=== PATIENT | male | born 1990 | race Caucasian/White ===

== ENCOUNTER 2018-05-03 13:26 | Emergency (ER) | payer MEDICAID, SELFPAY ==
[2018-05-03] VITALS (7 sets, daily range): BP systolic 136–175; BP diastolic 73–99; PULSE 83–95; RESP 14–15; TEMP 37.3; O2SAT 96–99; BMI 30.7
--- NOTE | 2018-05-03 13:38 | ED.RN ---
GIRLFRIEND ARRIVED AND IS NOW AT BEDSIDE.
--- NOTE | 2018-05-03 13:39 | ED.RN ---
CAMO BOOTS, LIGHT BROWN CARHART TYPE COAT, JEANS, SHIRT, UNDERWEAR.
--- NOTE | 2018-05-03 13:43 | ED.RN ---
PT STATES THAT HE HAS BEEN OUT OF HIS ZYPREXA FOR SEVERAL DAYS AND THINKS THAT IS WHAT IS WRONG AND JUST NEEDS THE ZYPREXA REFILLED.
[2018-05-03 14:12] LABS: Absolute Lymphocyte Count 1.51 X10^3/ul (0.83-4.51); Absolute Neutrophil Count 8.3 X10^3/uL (2.0-7.7); Basophil# 0.01 X10^3/uL; Basophil% 0.1 % (0-1); Eosinophil# 0.01 X10^3/uL; Eosinophils% 0.1 % (0-5); Hematocrit 50.3 % (40-54); Hemoglobin 17.2 g/dl (13.0-16.5); Lymphocyte # 1.51 X10^3/ul (4.0); Lymphocyte % 14.3 % (19-41); Mean Corp Hgb Conc 34.2 g/gl (32-36); Mean Corpuscular Hgb 28.9 pg (27.0-32.0); Mean Corpuscular Volume 84.5 fL (80-94); Mean Platelet Vol. 10.1 fl (6.2-12.0); Monocyte# 0.72 X10^3/uL; Monocyte% 6.8 % (0-10); Neutrophil # 8.31 X10^3/uL (2.7-7.7); Neutrophil % 78.4 % (47-70); Platelet Count 281 K/mm3 (150-450); RBC Distribution Width CV 14.2 % (11.6-14.6); RBC Distribution Width SD 43.1 fl (35.1-43.9); Red Blood Count 5.95 M/mm3 (4.6-6.2); White Blood Count 10.6 K/mm3 (4.4-11.0)
[2018-05-03 14:16] LABS: POSITIVE COUNT NO; POSITIVE DIFFERENTIAL NO; POSITIVE MORPHOLOGY NO
[2018-05-03 14:28] LABS: AST(SGOT) 15 U/L (15-37); Alanine Aminotransfer ALT/SGPT 29 U/L (16-61); Albumin, Serum 4.2 g/dL (3.2-5.0); Alkaline Phosphatase 63 U/L (45-117); Anion Gap 11 (5-15); BUN 10 mg/dL (7-18); BUN/Creat Ratio 12.1 RATIO (10-20); Calcium,Total 9.2 mg/dL (8.5-10.1); Chloride 103 mmol/L (98-107); Creatinine, Serum 0.83 mg/dL (0.70-1.30); EST Glomerular Filtration Rate 118 mL/min (>60); Est Glom Filt Rate - Afr Amer 143 mL/min (>60); Estimated Creatinine Clearance 142.38 ml/min; Glucose 110 mg/dL (74-106); Potassium 3.6 mmol/L (3.5-5.1); Protein, Total 8.2 g/dL (6.4-8.2); Sodium Level 141 mmol/L (136-145)
[2018-05-03 14:46] LABS: Valproic Acid (Depakene) Level 92 ug/mL (50-100)
--- NOTE | 2018-05-03 15:03 | ED.VISSUMM ---
- ER Visit Summary Date of Service: 05/03/18 Chief Complaint: Schizophrenia History of Present Illness: The patient is a 27 M is a history of schizophrenia. Over the past couple days significant other has stated that she has not felt very safe at home. He is starting to have hallucinations. He states he is in a world war. He had an appointment today with his psychiatrist to receive his monthly injection and was stating that that is a lethal injection. He came to the emergency department with police under a pink slip by the psychiatrist. He lives with his significant other and has 2 daughters both at the age of 1. He denies any suicidal ideation. He does note thoughts of harming people if needed to. Physical Examination: Afebrile vital signs are stable Patient has pressured speech and appears internally stimulated. He does have hallucinations/delusions. He has paranoid ideation. He is cooperative with staff. Test Results: Basic labs were negative. Emergency Department Course and Treatment: Patient was medically cleared for crisis evaluation. I believe the patient needs to be admitted and stabilized to psychiatric facility. Impression: 1. Acute decompensated schizophrenia This note was generated with DataStax dictation software. It may contain incorrect words, spelling, and punctuation that were not noted in review of the chart prior to signing ED Disposition - Plan for ED Patient: Chief Complaint: Depression Referrals: Care Physician,No Primary [Primary Care Provider] -
[2018-05-03 15:09] LABS: Amphetamine Urine VISTA NEGATIVE (<1000 ng/mL); Barbiturate Urine VISTA NEGATIVE (< 200 ng/mL); Benzodiazepine Urine VISTA NEGATIVE (< 200 ng/mL); Cocaine Urine VISTA NEGATIVE (< 300 ng/mL); Ecstacy Urine VISTA NEGATIVE (< 500 ng/mL); Methadone Urine VISTA NEGATIVE (< 300 ng/mL); PCP Urine VISTA NEGATIVE (< 25 ng/mL); THC Urine VISTA POSITIVE (< 50 ng/mL); Vista UDS pH Range 7
--- NOTE | 2018-05-03 15:10 | ED.DCSUM_ITS ---
- ER Visit Summary Date of Service: 05/03/18 Chief Complaint: Schizophrenia History of Present Illness: The patient is a 27 M is a history of schizophrenia. Over the past couple days significant other has stated that she has not felt very safe at home. He is starting to have hallucinations. He states he is in a world war. He had an appointment today with his psychiatrist to receive his monthly injection and was stating that that is a lethal injection. He came to the emergency department with police under a pink slip by the psychiatrist. He lives with his significant other and has 2 daughters both at the age of 1. He denies any suicidal ideation. He does note thoughts of harming people if ne eded to. Physical Examination: Afebrile vital signs are stable Patient has pressured speech and appears internally stimulated. He does have hallucinations/delusions. He has paranoid ideation. He is cooperative with staff. Test Results: Basic labs were negative. Emergency Department Course and Treatment: Patient was medically cleared for crisis evaluation. I believe the patient needs to be admitted and stabilized to psychiatric facility. Impression: 1. Acute decompensated schizophrenia This note was generated with App[employer] dictation software. It may contain incorrect words, spelling, and punctuation that were not noted in review of the chart prior to signing ED Disposition - Plan for ED Patient: Chief Complaint: Depression Referrals: Care Physician,No Primary [Primary Care Provider] -
[2018-05-03] MEDS: LORazepam 1 MG Tablet PO (16:25)
[2018-05-03] MEDS: LORazepam 1 MG Tablet 2 MG PO (17:21)
[2018-05-03] MEDS: Ziprasidone IM 20 MG/ML VIAL IM (17:51)
--- NOTE | 2018-05-03 18:01 | ED.RN ---
PER YNES WITH CRISIS; PT HAS BEEN REFEREED TO [facility] FOR [facility]ACEMENT
--- NOTE | 2018-05-03 19:06 | ED.RN ---
CALL WHEN WE KNOW WHERE AND WHEN HE IS BEING TRANSFERRED. IVÁN LEVY, - [phone]
--- NOTE | 2018-05-03 20:20 | ED.RN ---
CALLED AND UPDATED AT THIS TIME
--- NOTE | 2018-05-03 20:23 | ED.RN ---
CALLED REPORT CALLED TO [facility], REPORT GIVEN TO URIEL.
--- NOTE | 2018-05-03 20:50 | ED.RN ---
REPORT GIVEN TO [facility], PT STATUS UNCHANGED. BELONGINGS GIVEN TO [facility] STAFF.
== END 2018-05-03 20:45 ==
PROVIDERS: Emergency Provider Emergency Medicine
DX: F23 Brief psychotic disorder (principal); Z72.0 Tobacco use; Z79.899 Other long term (current) drug therapy
CPT/HCPCS: 36415; 80053; 80164; 80307; 80320; 85025; 96372; 99285; G0480; J3486

== ENCOUNTER → 2019-12-30 11:46 | Outpatient (CLI) | payer MEDICARE, MEDICAID, SELFPAY ==
[2018-05-03 13:27] VITALS: BMI 30.7
[2019-12-30 12:38] LABS: Platelet Count 321 K/mm3 (150-450)
[2019-12-30 13:01] LABS: AST(SGOT) 16 U/L (15-37); Alanine Aminotransfer ALT/SGPT 26 U/L (16-61)
[2019-12-30 13:03] LABS: Valproic Acid (Depakene) Level 148 ug/mL (50-100)
== END ==
PROVIDERS: Referring Provider Psychiatry & Neurology Psychiatry; Visit Provider Psychiatry & Neurology Psychiatry
DX: Z79.899 Other long term (current) drug therapy (principal)
CPT/HCPCS: 36415; 80164; 82140; 84450; 84460; 85049

== ENCOUNTER → 2020-01-27 07:50 | Outpatient (CLI) | payer MEDICARE, MEDICAID, SELFPAY ==
[2018-05-03 13:27] VITALS: BMI 30.7
[2020-01-27 09:46] LABS: Valproic Acid (Depakene) Level < 3 ug/mL (50-100)
== END ==
PROVIDERS: Referring Provider Psychiatry & Neurology Psychiatry; Visit Provider Psychiatry & Neurology Psychiatry
DX: Z79.899 Other long term (current) drug therapy (principal)
CPT/HCPCS: 36415; 80164

== ENCOUNTER 2020-04-08 18:22 | Emergency (ER) | payer MEDICARE, MEDICAID, SELFPAY ==
[2018-05-03 13:27] VITALS: BMI 30.7
[2020-04-08 18:25] VITALS: BP 156/86; PULSE 74; RESP 16; TEMP 35.8; O2SAT 97; BMI 31.4
[2020-04-08 18:28] VITALS: BP 156/86; PULSE 72; RESP 16; TEMP 35.8; O2SAT 97
[2020-04-08 18:51] LABS: Absolute Lymphocyte Count 3.44 X10^3/uL (0.83-4.51); Absolute Neutrophil Count 5.6 X10^3/uL (2.0-7.7); Basophil# 0.04 X10^3/uL; Basophil% 0.4 % (0-1); Eosinophil# 0.11 X10^3/uL; Eosinophils% 1.1 % (0-5); Hematocrit 52.6 % (40-54); Hemoglobin 17.4 g/dL (13.0-16.5); Lymphocyte # 3.44 X10^3/ul (4.0); Mean Corp Hgb Conc 33.1 g/dL (32-36); Mean Corpuscular Hgb 28.3 pg (27.0-32.0); Mean Corpuscular Volume 85.7 fL (80-94); Mean Platelet Vol. 9.3 fl (6.2-12.0); Monocyte# 0.65 X10^3/uL; Monocyte% 6.6 % (0-10); NRBC Flagged by Analyzer 0 % (0-5); Neutrophil # 5.57 X10^3/uL (2.7-7.7); Neutrophil % 56.7 % (47-70); Platelet Count 321 K/mm3 (150-450); RBC Distribution Width CV 13.2 % (11.6-14.6); RBC Distribution Width SD 41.1 fl (35.1-43.9); Red Blood Count 6.14 M/mm3 (4.6-6.2); White Blood Count 9.8 K/mm3 (4.4-11.0)
--- NOTE | 2020-04-08 19:01 | ED.VISSUMM ---
- ER Visit Summary Date of Service: 04/08/20 Chief Complaint: Homicidal ideation History of Present Illness: The patient is a 29 M presenting with homicidal ideation. Patient states that he is having abnormal thoughts and paranoia. He is having homicidal thoughts towards Shivam Kulkarni. He is concerned that Cayla will take everyone's guns away. He is concerned this may cause a bloody war in [place]. He is concerned about the violence. He denies suicidal ideation or homicidal ideation towards anyone other than Shivam Kulkarni. He has a history of schizophrenia and follows with the counseling center. He admits to marijuana use, denies other drug use. Physical Examination: Vitals are stable. Patient is afebrile. Alert no acute distress. HEENT exam is unremarkable. Neck is supple. Lungs are clear and equal bilaterally. Heart is regular rate and rhythm. Abdomen is soft nontender nondistended. Extremities are unremarkable. Skin is warm and dry. No focal neurologic deficit. Cooperative, denies suicidal ideation, homicidal ideation toward Cayla Remainder of exam is unremarkable. Emergency Department Course and Treatment: CBC, chemistries unremarkable. Alcohol negative. Tox positive for THC. Awaiting counseling center evaluation, patient became upset about not being able to call his , he became aggressive and eloped from the emergency department. Police were called and are attempting to locate him. Disposition: Elopement Impression: Homicidal thoughts, history of schizophrenia This note was generated with Wellpepper dictation software. It may contain incorrect words, spelling, and punctuation that were not noted in review of the chart prior to signing ED Disposition - Plan for ED Patient: Disposition: Against Medical Advice Referrals: Care Physician,No Primary [Primary Care Provider] -
[2020-04-08 19:04] LABS: Anion Gap 5 (5-15); BUN 7 mg/dL (7-18); BUN/Creat Ratio 7.9 RATIO (10-20); Chloride 109 mmol/L (98-107); Creatinine, Serum 0.88 mg/dL (0.70-1.30); EST Glomerular Filtration Rate 108 mL/min (>60); Est Glom Filt Rate - Afr Amer 131 mL/min (>60); Estimated Creatinine Clearance 131.92 ml/min; Glucose 92 mg/dL (74-106); Potassium 3.7 mmol/L (3.5-5.1); Sodium Level 139 mmol/L (136-145)
[2020-04-08 19:47] LABS: Amphetamine Urine VISTA NEGATIVE (<1000 ng/mL); Barbiturate Urine VISTA NEGATIVE (< 200 ng/mL); Benzodiazepine Urine VISTA NEGATIVE (< 200 ng/mL); Cocaine Urine VISTA NEGATIVE (< 300 ng/mL); Ecstacy Urine VISTA NEGATIVE (< 500 ng/mL); Methadone Urine VISTA NEGATIVE (< 300 ng/mL); PCP Urine VISTA NEGATIVE (< 25 ng/mL); THC Urine VISTA POSITIVE (< 50 ng/mL); Vista UDS pH Range 5
[2020-04-08 19:53] VITALS: RESP 16
--- NOTE | 2020-04-08 20:04 | ED.RN ---
PT CAME RUSHING OUT OF ROOM. THE PHONE DOESN'T WORK, I'M OUT OF HERE. GIVE ME MY FUCKING CLOTHES. PT RUSHED AT THIS NURSE I WAS TRYING TO DEFUSE THE SITUATION. PT REPEATEDLY ASKED FOR HIS CLOTHES AND RUSHED AT THIS NURSE IN A THREATENING MANOR. PT LEFT THE ER IN GOWNS AND HOSPITAL SOCKS. WIRELESS COMMUNICATIONS ENGINEER WAS INSTRUCTED TO CALL POLICE. DR. QUEEN AWARE OF SITUATION.
--- NOTE | 2020-04-08 20:06 | ED.RN ---
PT WAS GIVEN A PHONE BY THE MANAGER LINUX AND TO CALL HIS ,PT DIALED HIS .NEXT SECOND PT CAME OUT CURSING AND SAYING,FUCK YOU,I'M OUT OF HERE SINCE I CAN'T CALL MY . FOLLOWED PT OUT AND HE TURNED TO THE R SIDE.PT GAVE THIS NURSE THE MIDDLE FINGER AND LEFT.POLICE CALLED.
--- NOTE | 2020-04-08 20:39 | ED.RN ---
2006 pt was not pink slipped.
--- NOTE | 2020-04-08 20:39 | ED.RN ---
pt's called and stated that the pt had called her and wanted to be picked up and then hung up prior to her responding.pt's asked where to pick him up at,she was confused.updated as able, asked to be called when he comes back.
--- NOTE | 2020-04-08 21:42 | ED.RN ---
THIS RN SPOKE WITH [place] IN SECURITY TO SEE IF HE HEARD ANY UPDATES FROM THE POLICE SCANNER. HE STATES HE HEARD ON THE SCANNER IT'S CLOSED. PRIMARY NURSE NOTIFIED
== END 2020-04-08 22:00 | disposition left against medical advice (07) ==
PROVIDERS: Emergency Provider Emergency Medicine
DX: F20.9 Schizophrenia, unspecified (principal); R45.850 Homicidal ideations; Z72.0 Tobacco use; Z79.899 Other long term (current) drug therapy
CPT/HCPCS: 36415; 80048; 80307; 80320; 85025; 99282; G0480

== ENCOUNTER 2020-08-16 02:04 | Emergency (ER) | payer MEDICARE, MEDICAID, SELFPAY ==
[2020-08-16] VITALS (15 sets, daily range): BP systolic 107–192; BP diastolic 60–100; PULSE 62–108; RESP 14–20; TEMP 36.6; O2SAT 93–99; BMI 28.7
--- NOTE | 2020-08-16 02:15 | ED.VIS.GEN ---
History of Present Illness Chief Complaint: Mental Health Informant: Patient Narrative: 30 year-old male with past medical history of bipolar disorder and schizophrenia presents with concern for melchor. Patient's called police whenever he called her in a manic state. When police approached him at home he ran out on his roof and was very paranoid stating that no one is real. Patient states he has been taking his medication. He denies any suicidal or homicidal ideation at this time. Per on the phone he takes Depakote, Zyprexa, and a monthly Abilify shot. Patient did receive his Abilify on 07/23/2020. Past Medical History - Allergies and Home Meds Allergies/Adverse Reactions: Allergies haloperidol [From Haldol] Allergy (Verified 08/16/20 02:10) Other jaw clenching risperidone Allergy (Verified 08/16/20 02:10) Other jaw clenching Primary Care Physician: Care Physician,No Primary [Primary Care Provider] - Prior records reviewed: Yes Past Medical History: - - Bipolar and Schizophrenia Lives: Spouse/ Significant Other Smoking Status: Current every day smoker Alcohol: None Drugs: None Review of Systems General: Denies: Chills, Fever, Sweats Eyes: Denies: Visual changes - bilaterally, Diplopia ENT: Denies: Rhinorrhea, Sore throat Cardiovascular: Denies: Chest pain, Palpitations Respiratory: Denies: Dyspnea, Cough, Dyspnea on exertion Gastrointestinal: Denies: Abdominal pain, Nausea, Vomiting, Diarrhea, Melena, Hematochezia Genitourinary: Denies: Dysuria, Hematuria, Frequency Musculoskeletal: Denies: Back pain, Extremity Pain Skin: Denies: Rash, Wounds Neurological: Denies: Headache, Weakness, Numbness Psych: Reports: - - melchor Physical Exam Vital Signs/Narrative: Vital Signs Temp Pulse Resp BP Pulse Ox 08/16/20 02:08 97.8 F 88 16 192/100 H 93 General: Well nourished, Well developed, No Acute Distress Head: Normocephalic, Atraumatic Eyes: Perrl, EOMI ENT: Moist mucous membranes, No rhinorrhea Neck: Supple, Nontender Cardiovascular: Regular rate, Regular rhythm, No murmurs Respiratory: No distress, CTA bilaterally, Chest nontender Abdomen: Soft, Nontender, Nondistended, Normal bowel sounds Back: Nontender, Normal Inspection Extremities: Nontender, No edema Skin: Normal color, No rash Neurological: Alert, Oriented x3, Cranial nerves II-XII grossly intact, Normal Strength, Normal Sensation Psychological: Normal affect, - - Internally stimulated Diagnostic/Tx/Re-eval Laboratory Data 08/16/20 08/16/20 08/16/20 02:20 02:20 02:20 WBC 9.8 RBC 5.60 Hgb 15.9 Hct 47.4 MCV 84.6 MCH 28.4 MCHC 33.5 RDW Std Deviation 41.2 RDW Coeff of Elli 13.3 Plt Count 345 MPV 9.2 Immature Gran % (Auto) 0.300 Neut % (Auto) 67.0 Lymph % (Auto) 24.9 Hood % (Auto) 6.8 Eos % (Auto) 0.6 Baso % (Auto) 0.4 Absolute Neuts (auto) 6.6 Absolute Lymphs (auto) 2.44 Nucleated RBC % 0 Sodium 137 Potassium 3.5 Chloride 102 Carbon Dioxide 25.0 Anion Gap 10 BUN 15 Creatinine 1.05 Estim Creat Clear Calc 109.56 Est GFR (MDRD) Af Amer 107 Est GFR (MDRD) Non-Af 88 BUN/Creatinine Ratio 14.3 Glucose 123 H Calcium 9.6 Urine Color Urine Clarity Urine pH Ur Specific [place] Urine Protein Urine Glucose (UA) Urine Ketones Urine Occult Blood Urine Nitrite Urine Bilirubin Urine Urobilinogen Ur Leukocyte Esterase Urine RBC Urine WBC Ur Squamous Epith Cells Urine Bacteria Urine Mucus Urine Opiates Screen Urine Methadone Screen Ur Barbiturates Screen Ur Phencyclidine Scrn Ur Amphetamines Screen U Methamphetamin-MDMA U Benzodiazepines Scrn Urine Cocaine Screen U Cannabinoids Screen Ur Drug Screen Comment Ethyl Alcohol < 3.0 08/16/20 08/16/20 02:45 02:45 WBC RBC Hgb Hct MCV MCH MCHC RDW Std Deviation RDW Coeff of Elli Plt Count MPV Immature Gran % (Auto) Neut % (Auto) Lymph % (Auto) Hood % (Auto) Eos % (Auto) Baso % (Auto) Absolute Neuts (auto) Absolute Lymphs (auto) Nucleated RBC % Sodium Potassium Chloride Carbon Dioxide Anion Gap BUN Creatinine Estim Creat Clear Calc Est GFR (MDRD) Af Amer Est GFR (MDRD) Non-Af BUN/Creatinine Ratio Glucose Calcium Urine Color Yellow Urine Clarity Clear Urine pH 7.0 Ur Specific [place] 1.005 Urine Protein Negative Urine Glucose (UA) Normal Urine Ketones 5 H Urine Occult Blood Negative Urine Nitrite Negative Urine Bilirubin Negative Urine Urobilinogen Normal Ur Leukocyte Esterase Negative Urine RBC 0 SEEN Urine WBC 0 SEEN Ur Squamous Epith Cells 0 SEEN Urine Bacteria 0 SEEN Urine Mucus 0 SEEN Urine Opiates Screen NEGATIVE Urine Methadone Screen NEGATIVE Ur Barbiturates Screen NEGATIVE Ur Phencyclidine Scrn NEGATIVE Ur Amphetamines Screen POSITIVE H U Methamphetamin-MDMA NEGATIVE U Benzodiazepines Scrn NEGATIVE Urine Cocaine Screen NEGATIVE U Cannabinoids Screen POSITIVE H Ur Drug Screen Comment Ethyl Alcohol - Rhythm Strip Rhythm Strip: Sinus Rhythm Rate: 70 Ectopy: None - EKG Initial EKG Interpretation: Sinus Rhythm - NSR 70 bpm. SD interval of 150 ms. QTC of 442 ms. No evidence of ST elevation or depression at this time. - Medical Decision Making Patient manic upon arrival. Patient was given Zyprexa and Versed. Medically cleared. Patient became agitated and was given more Versed. Spoke with crisis and patient is will need to be admitted. Patient then eloped from the department. Police were called. Upon return patient will be restrained and await placement. Impression: 1. Acute psychosis 2. Schizophrenia 3. Bipolar disorder 4. Agitation - Critical Care Time Critical care time (excluding procedures): 30-74 minutes, Discussing w/Patient &/or Family/Screw Machine Operator, Discussing w/Consultants, Performing Direct Patient Care at Bedside ED Disposition - Plan for ED Patient: Disposition: Psychiatric Hospital or Unit Referrals: Care Physician,No Primary [Primary Care Provider] -
[2020-08-16] MEDS: Midazolam 2 MG/2 ML Syringe 5 MG IM (02:20)
[2020-08-16 02:25] LABS: Absolute Lymphocyte Count 2.44 X10^3/uL (0.83-4.51); Absolute Neutrophil Count 6.6 X10^3/uL (2.0-7.7); Basophil# 0.04 X10^3/uL; Basophil% 0.4 % (0-1); Eosinophil# 0.06 X10^3/uL; Eosinophils% 0.6 % (0-5); Hematocrit 47.4 % (40-54); Hemoglobin 15.9 g/dL (13.0-16.5); Lymphocyte # 2.44 X10^3/ul (4.0); Lymphocyte % 24.9 % (19-41); Mean Corp Hgb Conc 33.5 g/dL (32-36); Mean Corpuscular Hgb 28.4 pg (27.0-32.0); Mean Corpuscular Volume 84.6 fL (80-94); Mean Platelet Vol. 9.2 fl (6.2-12.0); Monocyte# 0.67 X10^3/uL; Monocyte% 6.8 % (0-10); NRBC Flagged by Analyzer 0 % (0-5); Neutrophil # 6.55 X10^3/uL (2.7-7.7); Platelet Count 345 K/mm3 (150-450); RBC Distribution Width CV 13.3 % (11.6-14.6); RBC Distribution Width SD 41.2 fl (35.1-43.9); White Blood Count 9.8 K/mm3 (4.4-11.0)
[2020-08-16] MEDS: OLANZapine 5 MG/TAB TAB.RAPDIS 10 MG PO (02:32)
[2020-08-16 02:37] LABS: Alcohol, Blood (Medical)-Serum < 3.0 mg/dL
[2020-08-16 02:39] LABS: Anion Gap 10 (5-15); BUN 15 mg/dL (7-18); BUN/Creat Ratio 14.3 RATIO (10-20); Calcium,Total 9.6 mg/dL (8.5-10.1); Chloride 102 mmol/L (98-107); Creatinine, Serum 1.05 mg/dL (0.70-1.30); EST Glomerular Filtration Rate 88 mL/min (>60); Est Glom Filt Rate - Afr Amer 107 mL/min (>60); Estimated Creatinine Clearance 109.56 ml/min; Glucose 123 mg/dL (74-106); Potassium 3.5 mmol/L (3.5-5.1); Sodium Level 137 mmol/L (136-145)
[2020-08-16 02:51] LABS: Bacteria 0 SEEN /hpf (None Seen); Color, Urine Yellow (Yellow); Glucose, Dipstick Normal (Normal); Ketone-Dipstick 5 mg/dl (Negative); Leukocyte Esterase-Dipstick Negative /ul (Negative); Mucous, Urine 0 SEEN /hpf (<or=2+); Nitrite-Dipstick Negative (Negative); Occult Blood-Urine Negative /ul (Negative); Protein-Dipstick Negative (Negative); Red Blood Cells-Urine 0 SEEN /hpf (0-5); Specific Gravity, Urine 1.005 (1.002-1.030); Squamous Epithelial Cells - UA 0 SEEN /hpf (0-5); Urine Bilirubin Dipstick Negative (Negative); Urine Clarity Clear (Clear); Urine Urobilinogen Normal (Normal); White Blood Cells 0 SEEN /hpf (0-5)
[2020-08-16 03:10] LABS: Amphetamine Urine VISTA POSITIVE (<1000 ng/mL); Barbiturate Urine VISTA NEGATIVE (< 200 ng/mL); Benzodiazepine Urine VISTA NEGATIVE (< 200 ng/mL); Cocaine Urine VISTA NEGATIVE (< 300 ng/mL); Ecstacy Urine VISTA NEGATIVE (< 500 ng/mL); Methadone Urine VISTA NEGATIVE (< 300 ng/mL); PCP Urine VISTA NEGATIVE (< 25 ng/mL); THC Urine VISTA POSITIVE (< 50 ng/mL); Vista UDS pH Range 7
--- NOTE | 2020-08-16 03:15 | ED.RN ---
PAGED CRISIS AND FAXED THE REPORT
--- NOTE | 2020-08-16 04:50 | EKG12_ITS ---
Test Reason : MHC Blood Pressure : / mmHG Vent. Rate : 070 BPM Atrial Rate : 070 BPM P-R Int : 150 ms QRS Dur : 092 ms QT Int : 410 ms P-R-T Axes : 036 066 038 degrees QTc Int : 442 ms Normal sinus rhythm Normal ECG Confirmed by CHICO FORREST, MANI ([id number]), news assignment editor GAUDENCIO CRUM ([id number]) on 08/20/2020 1:23:24 PM Referred By: CL Confirmed By:CHINO GOLDEN MD
--- NOTE | 2020-08-16 05:44 | ED.RN ---
0520 REPAGED CRISIS TO TALK TO THIS PT, 05Bhargav, SILVINO ON THE PHONE WITH THIS PT
--- NOTE | 2020-08-16 05:50 | ED.RN ---
0530 CALLED POLICE DUE TO THIS PT WALKING OUT OF THE HOSPITAL, PT RETURNED VIA [facility]A FEW MINUTES LATER
--- NOTE | 2020-08-16 06:44 | ED.RN ---
PT STATED HE WOULD BE GOING HOME. PT TOLD BY RN THAT HE WOULD MOST LIKELY BE GETTING PLACED SOMEWHERE BASED ON THE ER DOC ASSMNT. PT STATES HE IS GETTING OUTTA HERE AND I CAN DO THIS ALL DAY REFERRING TO RUNNING OUT OF THE DEPARTMENT. PT RAN AROUND THE BACK OF THE DEPARTMENT. ELI DURAN WAS CALLED. PT ENDED UP CIRCLING BACK TO THE FRONT AND WAS MET BY SECURITY AND A NURSE. PT SHOVED THE FOUNTAIN VENDING MECHANIC STATING WHAT THE FUCK ARE YOU GONNA DO. PT SHOVED THROUGH THE ER DOORS, KNOCKING THEM OFF THE TRACK. SQL PROGRAMMER HAD CONTACTED [facility] AT THIS POINT TO GET OFFICERS DISPATCHED. PT RAN FROM FACILITY WITH [id number] ER PHONE IN HAND FROM TALKING TO CRISIS AND HIS . PT RAN ACROSS THE STREET AND LEFT PROPERTY WITH THE PHONE IN HAND. SECURITY FOLLOWED PT TO END OF HOSPITAL PROPERTY. NOTIFIED. MEDICATION AND LOCKED RESTRAINTS ORDERED FOR PTS RETURN TO ER. QUANTROS FILLED OUT FOR EVENT
--- NOTE | 2020-08-16 06:56 | NURSING ---
UMER DUBOIS WITH CRISIS; PT IS PENDING WITH [facility].
--- NOTE | 2020-08-16 07:01 | ED.RN ---
patient brought back in to ED handcuffed with 5 [employer] officers. Pt yelling screaming and threatening PD and staff. Pt assisted into ED bed by PD and placed in 4 point locked restraints. Pt yelling, kicking and threatening staff still. Patient medicated per JUL. See restraint documentation. Patient and staff safety maintained. Will continue to closely monitor patient.
[2020-08-16] MEDS: Ziprasidone IM 20 MG/ML VIAL IM ×2 (07:05→13:33)
[2020-08-16] MEDS: LORazepam 2 MG/ML Syringe IM (07:05)
[2020-08-16] MEDS: DiphenhydrAMINE 50 MG/ML Syringe 25 MG IM (07:05)
--- NOTE | 2020-08-16 07:53 | ED.RN ---
patient continues to scream in his room let me talk to my . Pt asked repeatedly to stop screaming. pt told if he stops screaming and cooperates he could talk to his . Patient did. called and placed on speaker phone in room with patient. Pt remains in restraints, will continue to monitor for removal.
--- NOTE | 2020-08-16 09:50 | NURSING ---
patient continuing to scream and try to rock the bed. still in restraints. Dr Hyman notified and new medication ordered. pt safety maintained.
[2020-08-16] MEDS: ChlorproMAZINE 50 MG/2 ML Ampul IM (09:56)
--- NOTE | 2020-08-16 16:31 | ED.RN ---
PT CONTINUES TO ROCK THE BED AND SCREAM. PT STILL IN 4 POINT RESTRAINTS. SAFETY MAINTAINED.
--- NOTE | 2020-08-16 17:36 | ED.RN ---
UPDATED NURSE GROVER FROM [facility]. UNABLE TO GET PT OUT OF RESTRAINTS AT THIS TIME, SO THEY CANNOT EXCEPT PT. WILL UPDATE [facility] NURSE ONCE WE CAN GET PT OUT OF RESTRAINTS.
--- NOTE | 2020-08-16 17:45 | ED.RN ---
PT CURRENTLY BEING COOPERATIVE AT THIS TIME. RIGHT WRIST AND LEFT ANKLE RESTRAINT REMOVED AT THIS TIME. PT EXPLAINED THAT HE MUST BE COOPERATIVE IN ORDER TO GET OUT OF RESTRAINTS. WILL CONTINUE TO MONITOR.
--- NOTE | 2020-08-16 18:10 | ED.RN ---
PT BEING COOPERATIVE AT THIS TIME. ALL RESTRAINS ARE OFF AT THIS TIME.
== END 2020-08-17 00:37 ==
PROVIDERS: Emergency Provider Emergency Medicine
DX: F20.9 Schizophrenia, unspecified (principal); F31.9 Bipolar disorder, unspecified; F17.200 Nicotine dependence, unspecified, uncomplicated; Z79.899 Other long term (current) drug therapy
CPT/HCPCS: 80048; 80307; 81001; 82077; 85025; 87426; 93005; 96372; 99285; J3486

== ENCOUNTER → 2021-04-08 11:17 | Outpatient (CLI) | payer MEDICARE, MEDICAID, SELFPAY ==
[2021-04-08 12:35] LABS: Platelet Count 261 K/mm3 (150-450)
[2021-04-08 13:13] LABS: AST(SGOT) 17 U/L (15-37); Alanine Aminotransfer ALT/SGPT 21 U/L (16-61); Prolactin 5.3 ng/mL; Valproic Acid (Depakene) Level 72 ug/mL (50-100)
[2021-04-08 13:24] LABS: Hemoglobin A1c 5.2 % (3.8-5.6)
== END ==
PROVIDERS: Referring Provider Psychiatry & Neurology Psychiatry; Visit Provider Psychiatry & Neurology Psychiatry
DX: Z79.899 Other long term (current) drug therapy (principal)
CPT/HCPCS: 36415; 80164; 83036; 84146; 84450; 84460; 85049

== ENCOUNTER 2021-06-28 06:43 | Emergency (ER) | payer MEDICARE, MEDICAID, SELFPAY ==
[2021-06-28 06:46] VITALS: BP 145/81; PULSE 70; RESP 16; TEMP 36.4; O2SAT 97; BMI 30.2
--- NOTE | 2021-06-28 07:10 | CT_ITS ---
STUDY: CT ABDOMEN AND PELVIS WITH CONTRAST REASON FOR EXAM: Male, 30 years old. Perineal abscess, ro fistula RADIATION DOSAGE (If Supplied By Facility): CTDIvol = ( 16.12 ) mGy, DLP = ( 1189.29 ) mGycm TECHNIQUE: Transaxial images were obtained from the dome of the diaphragm to the symphysis pubis without oral contrast. IV 100mL Isovue-370 was administered. Sagittal and coronal images were reconstructed. Individualized dose optimization techniques were used for this CT. COMPARISON: None. FINDINGS: The visualized lung bases are unremarkable. The visualized portions of the heart are within normal limits. Normal liver. The gallbladder is contracted. Normal spleen. Normal pancreas. Normal bilateral adrenal glands. Normal right kidney. Normal left kidney. Normal visualized stomach. Normal small intestine. Normal colon. The patient is status post appendectomy. Normal abdominal aorta. Normal inferior vena cava. There is borderline retroperitoneal lymphadenopathy with enlarged nodes no greater than 10mm in the short axis diameter. Normal urinary bladder. There are increased markings in the subcutaneous tissues in the region of the perineum and medial aspects of both gluteal regions. There is evidence of a 3.3 cm x 1.6 cm soft tissue density in the posterior midline of the perineum. A tiny air bubble is seen within it. This may represent either gas-forming bacterial infection versus communication with the overlying skin. Note definite abscess is seen at this time. Normal abdominal wall. Normal osseous structures. CT/Abdomen/Pelvis W IV Cont ONLY IMPRESSION: 3.3 cm x 1.6 cm soft tissue density in the posterior midline of the perineum with a tiny air bubble within. This may represent either gas-forming bacterial infection versus clinical indication with the overlying skin. Increased markings in the surrounding subcutaneous fat suggestive of possible cellulitis. Electronically Signed: Jose Armando Shirley MD at 7:51 EST ,
--- NOTE | 2021-06-28 07:11 | EX.ED.DYSGE1 ---
HPI History of Present Illness Chief Complaint: Abscess Detail of Chief Complaint: Concern for abscess to the perineum Informant: patient Narrative Narrative: Patient presents to the emergency department complaint of a soft tissue swelling and abscess to the perineum that has been dealing with off and on for about a year. Patient states that it it drains every month or two. Patient complains of pain to the area. He was not sure what to do and did not know if he needed to have antibiotics. Patient has history of schizophrenia. He presented this morning via EMS. He denies abdominal pain. He denies fever, chills, sweats. Prior similar symptoms: Yes PFSH PFS Medical History (Updated 06/28/21 @ 08:[address] Carlos Benson, DO) Bipolar disorder Schizophrenia Home Medications divalproex 500 mg PO DAILY 05/03/18 [History Last Taken Unknown] olanzapine 30 mg PO QHS 05/03/18 [History Last Taken Unknown] aripiprazole 500 mg IM QMONTH 04/08/20 [History Last Taken Unknown] sulfamethoxazole-trimethoprim 1 tab PO BID #20 tablet 06/28/21 [Rx Last Taken Unknown] Allergy/AdvReac Type Severity Reaction Status Date / Time haloperidol [From Haldol] Allergy Other Verified 06/28/21 06:44 risperidone Allergy Other Verified 06/28/21 06:44 Surgical History (Updated 06/28/21 @ 06:45 by Bib Caro) Hx of appendectomy Social History Smoking Status: Current every day smoker tobacco type: cigarettes ROS ROS ED Constitutional Constitutional ED: Reports systems reviewed and no addt'l complaints, except as documented; Denies body ache(s), change in weight or chills Eyes Eyes: Denies acute decrease in peripheral vision, change in vision, double vision or loss of vision ENT ENT ED: Reports none; Denies ear pain, lip swelling, loss taste/smell, neck pain, otalgia or sore throat Cardiovascular Cardiovascular: Reports none; Denies abdominal pain, chest pain with activity, leg edema, lightheadedness, palpitations, rapid heart rate or syncope Respiratory/Chest Respiratory/Chest: Reports none; Denies change in mental status, dry cough, dyspnea, hemoptysis, shortness of breath at rest or shortness of breath with exertion Gastrointestinal Gastrointestinal: Reports none; Denies abdominal pain, change in stool character, diarrhea, hematemesis, hematochezia, melena, rectal bleeding or vomiting Genitourinary Genitourinary ED: Reports none and other Details: Pain to the perineum with swelling and drainage ; Denies abdominal discomfort, anuria, dysuria, genital pain or polyuria Musculoskeletal Musculoskeletal: Reports none; Denies arthralgias, back pain, difficulty walking, extremity pain, muscle weakness or myalgias Integumentary Reports none; Denies abscess or rash Neurologic Neurologic: Reports none; Denies abnormal gait, confusion, focal weakness, frequent falls, headache(s), loss of vision, numbness, paresthesias, radicular pain, vertigo or weakness Psychiatric Psychiatric: Reports systems reviewed and no addt'l complaints, except as documented and none; Denies behavioral changes, confusion, difficulty concentrating, hallucinations, suicidal ideation, tactile hallucinations or visual hallucinations Endocrine Endocrinology: Denies none, cold intolerance, excessive sweating, fatigue or heat intolerance Hematologic/Lymphatic Hematologic/Lymphatic: Reports none; Denies anemia, easy bleeding or easy bruising Allergic/Immunologic Allergic/Immunologic ED: Denies as per HPI, none, lip swelling, mouth swelling, throat swelling, tongue swelling or hives EXAM Physical Exam Const Vital Signs: 06/28/21 06:46 06/28/21 07:38 Temperature 97.6 F L 98.7 F Temperature Source Temporal Temporal Pulse Rate 70 74 Respiratory Rate 16 18 Blood Pressure 145/81 H 140/79 H Blood Pressure Mean 102 99 Pulse Ox 97 99 Oxygen Delivery Method Room Air Room Air Positive well nourished and well developed General Appearance ED: well developed and NAD HEENT Reports TM's clear and moist mucous membranes normocephalic and atraumatic; Negative for trauma or tenderness Tympanic Membrane ED: Yes TM's clear Eyes PERRL and EOMs intact bilaterally General Eye ED: Negative for pale conjunctiva or scleral icterus Neck no lymphadenopathy, supple and no JVD General: Negative for tenderness Chest Wall inspection of chest normal and palpation of chest normal Chest: Negative for tenderness Resp normal respiratory effort and clear to auscultation bilaterally Effort and Inspection: Negative for respiratory distress or pain with movement Auscultation: Negative for rhonchi, wheezes or diminished lung sounds Cardio regular rate, regular rhythm, S1 normal heart sound, S2 normal heart sound and no murmurs Peripheral Pulses: pulses 2+ throughout GI normal to inspection, nondistended, normoactive bowel sounds, soft to palpation, non-tender, non-distended and no masses Narrative: Evaluation of the perineum reveals a small opening measuring about 5 mm in diameter draining some serous the brownish debris. Mild tenderness on exam. Back/Spine no CVA tenderness and no thoracic nor lumbar tenderness Extremity normal to inspection General Extremety ED: Negative for edema General Extremity: Negative for edema Neuro oriented x3, CN's II-XII intact bilaterally, no sensory deficits noted and gait normal Sensorium / Orientation: awake, alert, oriented to person, oriented to place and oriented to time Motor Exam: strength 5/5 throughout and strength abnormal Psych mental status grossly normal Skin no rashes or lesions noted and no wounds MDM MDM MDM Narrative Medical decision making narrative: IV line established on arrival. Lab work ordered. CT scan of the abdomen pelvis with IV contrast ordered to rule out abscess versus fistula. Lab work was normal. CT scan showed a 3 cm x 1.6 cm soft tissue density in the posterior midline of the perineum. I discussed results with general surgeon on-call Dr. Sunny Dawkins who recommended Epson salt baths and antibiotic Bactrim and he will see patient in the office for follow-up. Patient advised return if fever, chills, sweats, or condition should worsen anyway. Patient discharged home stable condition Lab Data Attestation: I reviewed the patient's lab results. Labs: Laboratory Results - last 24 hr 06/28/21 06/28/21 07:20 07:20 WBC 8.4 RBC 5.28 Hgb 15.9 Hct 46.7 MCV 88.4 MCH 30.1 MCHC 34.0 RDW Std Deviation 44.1 H RDW Coeff of Elli 13.4 Plt Count 233 MPV 9.4 Immature Gran % (Auto) 0.400 Neut % (Auto) 63.6 Lymph % (Auto) 26.8 [place] % (Auto) 7.8 Eos % (Auto) 0.8 Baso % (Auto) 0.6 Absolute Neuts (auto) 5.4 Absolute Lymphs (auto) 2.26 Nucleated RBC % 0 Sodium 139 Potassium 3.8 Chloride 107 Carbon Dioxide 28.0 Anion Gap 4 L BUN 6 L Creatinine 0.75 Estim Creat Clear Calc 153.39 Est GFR (MDRD) Af Amer 157 Est GFR (MDRD) Non-Af 130 BUN/Creatinine Ratio 8.0 L Glucose 115 H Calcium 8.8 Radiography Diagnostic Testing: Clinical Impression(s) from Imaging Studies Abdomen/Pelvis CT 06/28/21 07:10 IMPRESSION: 3.3 cm x 1.6 cm soft tissue density in the posterior midline of the perineum with a tiny air bubble within. This may represent either gas-forming bacterial infection versus clinical indication with the overlying skin. Increased markings in the surrounding subcutaneous fat suggestive of possible cellulitis. Electronically Signed: Jose Armando Shirley MD at 7:51 EST , Discharge Plan Triage Chief Complaint: Abscess ED Provider: Carlos Benson Dx/Rx/DC Orders Clinical Impression: Abscess of perineum Instructions: ED Abscess Antibiotic Treatment Only Prescriptions: New sulfamethoxazole-trimethoprim [sulfamethoxazole-trimethoprim] 1 TABLET tablet 1 tab PO BID Qty: 20 RF: 0 No Action olanzapine 10 MG tablet 30 mg PO QHS RF: 0 divalproex 250 MG tablet 500 mg PO DAILY RF: 0 aripiprazole 400 MG suspension,extended rel recon 500 mg IM QMONTH RF: 0 Primary Care Provider: Care Physician,No Primary Referrals: Sunny Dawkins MD [STAFF PHYSICIAN] - 3-5 Days Care Physician,No Primary [Primary Care Provider] - Activity Restrictions/Additional Instructions: Use Epson salt baths several times a day and follow-up with surgeon in the office. Disposition Disposition: Home, Self Care
[2021-06-28 07:25] LABS: Absolute Lymphocyte Count 2.26 X10^3/uL (0.83-4.51); Absolute Neutrophil Count 5.4 X10^3/uL (2.0-7.7); Basophil# 0.05 X10^3/uL; Basophil% 0.6 % (0-1); Eosinophil# 0.07 X10^3/uL; Eosinophils% 0.8 % (0-5); Hematocrit 46.7 % (40-54); Hemoglobin 15.9 g/dL (13.0-16.5); Lymphocyte # 2.26 X10^3/ul (0.83-4.51); Lymphocyte % 26.8 % (19-41); Mean Corpuscular Hgb 30.1 pg (27.0-32.0); Mean Corpuscular Volume 88.4 fL (80-94); Mean Platelet Vol. 9.4 fl (6.2-12.0); Monocyte# 0.66 X10^3/uL; Monocyte% 7.8 % (0-10); NRBC Flagged by Analyzer 0 % (0-5); Neutrophil # 5.36 X10^3/uL (2.7-7.7); Neutrophil % 63.6 % (47-70); Platelet Count 233 K/mm3 (150-450); RBC Distribution Width CV 13.4 % (11.6-14.6); RBC Distribution Width SD 44.1 fl (35.1-43.9); Red Blood Count 5.28 M/mm3 (4.6-6.2); White Blood Count 8.4 K/mm3 (4.4-11.0)
[2021-06-28 07:38] VITALS: BP 140/79; PULSE 74; RESP 18; TEMP 37.1; O2SAT 99
[2021-06-28 07:38] LABS: Anion Gap 4 (5-15); BUN 6 mg/dL (7-18); Calcium,Total 8.8 mg/dL (8.5-10.1); Chloride 107 mmol/L (98-107); Creatinine, Serum 0.75 mg/dL (0.70-1.30); EST Glomerular Filtration Rate 130 mL/min (>60); Est Glom Filt Rate - Afr Amer 157 mL/min (>60); Estimated Creatinine Clearance 153.39 ml/min; Glucose 115 mg/dL (74-106); Potassium 3.8 mmol/L (3.5-5.1); Sodium Level 139 mmol/L (136-145)
[2021-06-28 08:32] VITALS: PULSE 80; RESP 16; O2SAT 97
== END 2021-06-28 08:33 | disposition home or self-care (01) ==
PROVIDERS: Emergency Provider Emergency Medicine; Visit Provider Emergency Medicine
DX: L02.215 Cutaneous abscess of perineum (principal); F20.9 Schizophrenia, unspecified; F31.9 Bipolar disorder, unspecified; F17.210 Nicotine dependence, cigarettes, uncomplicated; Z79.899 Other long term (current) drug therapy
CPT/HCPCS: 74177; 80048; 85025; 99285; Q9967; A4216

== ENCOUNTER → 2021-12-09 | Outpatient (CLI) | payer MEDICARE, MEDICAID, SELFPAY ==
[2021-12-09 15:06] LABS: Platelet Count 309 K/mm3 (150-450)
[2021-12-09 15:32] LABS: Hemoglobin A1c 5.4 % (3.8-5.6)
[2021-12-09 15:48] LABS: Valproic Acid (Depakene) Level 58 ug/mL (50-100)
[2021-12-09 15:52] LABS: AST(SGOT) 18 U/L (15-37); Alanine Aminotransfer ALT/SGPT 32 U/L (16-61)
== END | disposition home or self-care (01) ==
LOC: LAB 12:07
PROVIDERS: Visit Provider Psychiatry & Neurology Psychiatry
DX: Z79.899 Other long term (current) drug therapy (principal)
CPT/HCPCS: 36415; 80164; 82140; 83036; 84450; 84460; 85049

== ENCOUNTER → 2022-01-07 | Outpatient (CLI) | payer MEDICARE, MEDICAID, SELFPAY | END | disposition home or self-care (01) | PROVIDERS: Referring Provider Psychiatry & Neurology Psychiatry; Visit Provider Psychiatry & Neurology Psychiatry | DX: Z79.899 Other long term (current) drug therapy (principal) | CPT/HCPCS: 36415; 82140 ==

== ENCOUNTER 2022-03-05 13:12 | Emergency (ER) | payer MEDICARE, MEDICAID, SELFPAY ==
[2022-03-05 13:13] VITALS: BP 128/85; PULSE 90; RESP 16; TEMP 37.1; O2SAT 98; BMI 30.3
== END 2022-03-05 14:30 | disposition left against medical advice (07) ==
LOC: ED 14:41
DX: L03.90 Cellulitis, unspecified (principal); Z53.21 Procedure and treatment not carried out due to patient leaving prior to being seen by health care provider

== ENCOUNTER 2022-03-30 01:46 | Emergency (ER) | payer MEDICARE, MEDICAID, SELFPAY ==
[2022-03-30 01:46] VITALS: BP 138/76; PULSE 76; RESP 18; TEMP 36.4; O2SAT 95; BMI 33.2
--- NOTE | 2022-03-30 02:01 | EX.ED.DYSGE1 ---
HPI History of Present Illness Chief Complaint: Abscess Informant: patient Onset/Context/Timing Onset: Days (4 days) Context: Gradual Onset Current Severity: Mild Maximum Severity: Moderate Narrative Narrative: Patient presents with concern for perineal abscess. He reports painful swollen area to the perineum. Has been using sitz baths and using antibiotic ointment. Tonight when he was using the restroom he noted a lot of blood and drainage. He has had no fever or chills. PFSH PFS Medical History Bipolar disorder Schizophrenia Home Medications divalproex 250 mg tablet,extended release 24 hr 500 mg PO DAILY 05/03/18 [History Last Taken Unknown] olanzapine 10 mg tablet 30 mg PO QHS 05/03/18 [History Last Taken Unknown] aripiprazole 400 mg intramuscular suspension,extended release 500 mg IM QMONTH 04/08/20 [History Last Taken Unknown] cephalexin 500 mg capsule 500 mg PO Q6 #40 caps 03/30/22 [Rx Last Taken Unknown] sulfamethoxazole 800 mg-trimethoprim 160 mg tablet (Bactrim DS) 1 tab PO BID #20 tabs 03/30/22 [Rx Last Taken Unknown] Allergy/AdvReac Type Severity Reaction Status Date / Time haloperidol [From Haldol] Allergy Other Verified 03/30/22 01:48 EST risperidone Allergy Other Verified 03/30/22 01:48 EST Surgical History Hx of appendectomy Social History Smoking Status: Current every day smoker tobacco type: cigarettes and smokeless tobacco ROS ROS ED Constitutional Constitutional ED: Denies chills or fever(s) Eyes Eyes: Denies change in vision or discharge from eye(s) ENT ENT ED: Denies discharge from eye(s), rhinorrhea or sore throat Cardiovascular Cardiovascular: Denies chest pain or palpitations Respiratory/Chest Respiratory/Chest: Denies cough or dyspnea Gastrointestinal Gastrointestinal: Denies abdominal pain, diarrhea, nausea or vomiting Genitourinary Genitourinary ED: Denies difficulty urinating or dysuria Musculoskeletal Musculoskeletal: Denies back pain or extremity pain Integumentary Reports abscess; Denies Abrasions or rash Neurologic Neurologic: Denies headache(s) or weakness Allergic/Immunologic Allergic/Immunologic ED: Denies lip swelling or urticaria EXAM Physical Exam Const Vital Signs: 03/30/22 01:46 EST Temperature 97.5 F L Temperature Source Temporal Pulse Rate 76 Respiratory Rate 18 Blood Pressure 138/76 H Blood Pressure Mean 96 Pulse Ox 95 Oxygen Delivery Method Room Air Positive well nourished and well developed General Appearance ED: well developed HEENT Reports normocephalic and head/scalp atraumatic Eyes PERRL and EOMs intact bilaterally Neck supple Chest Wall inspection of chest normal and palpation of chest normal Resp normal respiratory effort and clear to auscultation bilaterally Cardio regular rate and regular rhythm GI normal to inspection, nondistended, normoactive bowel sounds Palpation: soft Narrative: Small draining abscess noted on the posterior aspect of the proximal scrotum. Mild induration. No cellulitic skin changes. Back/Spine no CVA tenderness Extremity normal to inspection Neuro oriented x3 and no sensory deficits noted Sensorium / Orientation: alert Motor Exam: strength 5/5 throughout Psych mental status grossly normal Skin no rashes or lesions noted MDM MDM MDM Narrative Medical decision making narrative: Patient has an abscess that is already draining. Observed to express a significant amount of pus from the wound. Wound is cleansed. Patient be started on Bactrim and Keflex. Return instructions provided. Discharge Plan Triage Chief Complaint: Abscess ED Provider: Debra Bocanegra Dx/Rx/DC Orders Clinical Impression: Cutaneous abscess Instructions: ED Abscess Antibiotic Treatment Only Prescriptions: New sulfamethoxazole-trimethoprim [Bactrim DS] 800-160 mg tablet 1 tab PO BID Qty: 20 0RF cephalexin 500 mg capsule 500 mg PO Q6 Qty: 40 0RF No Action olanzapine 10 MG tablet 30 mg PO QHS divalproex 250 MG tablet 500 mg PO DAILY aripiprazole 400 MG suspension,extended rel recon 500 mg IM QMONTH Primary Care Provider: Care Physician,No Primary Referrals: Abdon Dimas MD [Med Staff - [employer] Milling Machine Set Up Operator] - As Needed Care Physician,No Primary [Primary Care Provider] - Disposition Disposition: Home, Self Care
[2022-03-30] MEDS: Smz/Tmp Ds Tablet 1 TABLET PO (02:15)
[2022-03-30] MEDS: Cephalexin 250 MG Capsule 500 MG PO (02:15)
== END 2022-03-30 02:17 | disposition home or self-care (01) ==
PROVIDERS: Emergency Provider Emergency Medicine; Visit Provider Emergency Medicine
DX: L02.215 Cutaneous abscess of perineum (principal); F20.9 Schizophrenia, unspecified; F31.9 Bipolar disorder, unspecified; F17.210 Nicotine dependence, cigarettes, uncomplicated; Z79.899 Other long term (current) drug therapy
CPT/HCPCS: 99283

== ENCOUNTER 2022-09-07 21:21 | Emergency (ER) | payer MEDICARE, MEDICAID, SELFPAY ==
[2022-09-07 21:21] VITALS: BP 147/95; PULSE 77; RESP 16; TEMP 36.6; O2SAT 97; BMI 32.8
--- NOTE | 2022-09-07 21:39 | EDS_ITS ---
HPI History of Present Illness Chief Complaint: Cellulitis Narrative Narrative: 32-year-old male here for right second digit pain and swelling. States piece of scrap metal cut his finger several days ago and since he had redness and swelling. Denies any fevers or chills. Denies any history of diabetes. Denies any loss sensation. Denies any fusiform swelling or inability to flex the finger. PFSH PFSH Medical History Bipolar disorder Schizophrenia Home Medications olanzapine 10 mg tablet 30 mg PO QHS 05/03/18 [History Last Taken Unknown] aripiprazole 400 mg intramuscular suspension,extended release 500 mg IM QMONTH 04/08/20 [History Last Taken Unknown] carbamazepine 100 mg chewable tablet 100 mg PO BID 09/07/22 [History Last Taken Unknown] cephalexin 500 mg capsule 500 mg PO TID 7 days #21 caps 09/07/22 [Rx Last Taken Unknown] sulfamethoxazole 800 mg-trimethoprim 160 mg tablet (Bactrim DS) 1 tab PO BID 7 days #14 tabs 09/07/22 [Rx Last Taken Unknown] Allergy/AdvReac Type Severity Reaction Status Date / Time haloperidol [From Haldol] Allergy Other Verified 09/07/22 21:23 risperidone Allergy Other Verified 09/07/22 21:23 Surgical History Hx of appendectomy Social History Smoking Status: Current every day smoker tobacco type: cigarettes and smokeless tobacco ROS ROS ED ROS Narrative Constitutional: Denies fever HEENT: Denies sore throat Neck: Denies neck pain Cardiovascular: Denies chest pain, syncope Respiratory: Denies shortness of breath GI: Denies nausea vomiting or abdominal pain : Denies changes in urinary habits Musculoskeletal: TTP over right second digit of the hand Neurologic: Denies numbness weakness or loss of sensation Skin redness over right second digit EXAM Physical Exam Narrative Exam Narrative: Nursing triage notes reviewed, Vital signs reviewed Constitutional: please see mdm : No CVAT Extremities: No edema, right second digit swollen, edematous but no fusiform swelling, no pain over flexor tendon, intact flexion. No pain with passive extension of the finger. Neuro: Intact 5/5 strength with ok sign (median), intact finger abduction (ulnar) intact wrist extension (radial n). Intact sensation in the radial, ulnar, and median nerve distributions. Skin: Erythema noted over the proximal second digit. Small abrasion noted over the palmar surface of the right hand Const Vital Signs: 09/07/22 21:21 Temperature 97.8 F Temperature Source Temporal Pulse Rate 77 Respiratory Rate 16 Blood Pressure 147/95 H Blood Pressure Mean 112 Pulse Ox 97 Oxygen Delivery Method Room Air MDM MDM MDM Narrative Medical decision making narrative: Chief Complaint: Right index finger pain and swelling External records reviewed: Recent adVanceed imaging the involved extremity I considered the following differential diagnosis: Cellulitis, paronychia, flexor tenosynovitis No evidence of paronychia or flexor tenosynovitis at this time. Concern for cellulitis. There were no obvious lacerations to repair. We will give broad- spectrum antibiotics (Keflex, Bactrim). Gave strict return precautions and follow-up instructions. The patient was hemodynamically stable, afebrile, nontoxic-appearing Factors affecting care: History of mental health disorder Social determinants of health: Polysubstance abuse History obtained from others: Shared decision making: I will have a discussion with the patient and or visitors regarding ris k/benefits of further testing or admission. They will be made aware of of the risk/benefits inherent in this decision they will be given the opportunity to voice understanding. Consults: None Discharge Plan Triage Chief Complaint: Cellulitis ED Provider: Jose Brambila Dx/Rx/DC Orders Clinical Impression: Cellulitis Instructions: Cellulitis Dc Prescriptions: New cephalexin 500 mg capsule 500 mg PO TID 7 Days Qty: 21 0RF sulfamethoxazole-trimethoprim [Bactrim DS] 800-160 mg tablet 1 tab PO BID 7 Days Qty: 14 0RF No Action olanzapine 10 MG tablet 30 mg PO QHS aripiprazole 400 MG suspension,extended rel recon 500 mg IM QMONTH carbamazepine [Tegretol] 100 mg Tablet,Chewable 100 mg PO BID Primary Care Provider: Care Physician,No Primary Referrals: Care Physician,No Primary [Primary Care Provider] - Activity Restrictions/Additional Instructions: Thank you for trusting us with your care today! Please take antibiotics to course complete. Please return if you develop worsening pain, redness, finger swelling. Please return if cannot tolerate antibiotics by mouth Please take Tylenol (2 pills, 650 mg), ibuprofen (2 pills, 400 mg) every 6 hours as needed for pain and fever control. Please return to the emergency department if your symptoms change or worsen. Please follow with your primary care physician for further outpatient evaluation and management. Disposition Disposition: Home, Self Care
[2022-09-07] MEDS: Cephalexin 250 MG Capsule 500 MG PO (22:08)
[2022-09-07] MEDS: Smz/Tmp Ds Tablet 1 TABLET PO (22:08)
== END 2022-09-07 22:26 | disposition home or self-care (01) ==
PROVIDERS: Emergency Provider Emergency Medicine; Visit Provider Emergency Medicine
DX: L03.90 Cellulitis, unspecified (principal); F17.210 Nicotine dependence, cigarettes, uncomplicated; F17.220 Nicotine dependence, chewing tobacco, uncomplicated
CPT/HCPCS: 99283

== ENCOUNTER → 2022-12-02 | Outpatient (CLI) | payer MEDICARE, MEDICAID, SELFPAY ==
[2022-12-02 15:08] LABS: Hematocrit 49.7 % (40-54); Hemoglobin 16.8 g/dL (13.0-16.5); Mean Corp Hgb Conc 33.8 g/dL (32-36); Mean Corpuscular Volume 88.8 fL (80-94); Mean Platelet Vol. 9.4 fl (6.2-12.0); Platelet Count 298 K/mm3 (150-450); RBC Distribution Width SD 42.6 fl (35.1-43.9); White Blood Count 6.6 K/mm3 (4.4-11.0)
[2022-12-02 15:24] LABS: Hemoglobin A1c 5.4 % (3.8-5.6)
[2022-12-02 15:46] LABS: ALB/GLOB Ratio 0.9 RATIO (0.9-2.4); AST(SGOT) 23 U/L (15-37); Alanine Aminotransfer ALT/SGPT 28 U/L (16-61); Albumin, Serum 3.6 g/dL (3.2-5.0); Alkaline Phosphatase 110 U/L (45-117); Anion Gap 4 (5-15); BUN 3 mg/dL (7-18); BUN/Creat Ratio 3.8 RATIO (10-20); Calcium,Total 8.7 mg/dL (8.5-10.1); Chloride 107 mmol/L (98-107); Creatinine, Serum 0.79 mg/dL (0.70-1.30); EST Glomerular Filtration Rate 121 mL/min (>60); Est Glom Filt Rate - Afr Amer 146 mL/min (>60); Globulin 3.8 g/dL (2.2-4.2); Glucose 99 mg/dL (74-106); Prolactin 5.9 ng/mL; Protein, Total 7.4 g/dL (6.4-8.2); Sodium Level 137 mmol/L (136-145); Thyroid Stim Hormone (TSH) 1.64 uIU/mL (0.358-3.74)
== END | disposition home or self-care (01) ==
PROVIDERS: Referring Provider Psychiatry & Neurology Psychiatry; Visit Provider Psychiatry & Neurology Psychiatry
DX: Z79.899 Other long term (current) drug therapy (principal)
CPT/HCPCS: 36415; 80053; 82140; 83036; 84146; 84443; 85027

== ENCOUNTER 2022-12-18 23:18 | Emergency (ER) | payer MEDICARE, MEDICAID, SELFPAY ==
[2022-12-18 23:18] VITALS: BP 144/85; PULSE 79; RESP 17; TEMP 36.4; O2SAT 93; BMI 31.1
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
== END 2022-12-19 00:53 | disposition home or self-care (01) ==
PROVIDERS: Emergency Provider Emergency Medicine; Visit Provider Emergency Medicine
DX: S20.211A Contusion of right front wall of thorax, initial encounter (principal); Y04.8XXA Assault by other bodily force, initial encounter; F17.210 Nicotine dependence, cigarettes, uncomplicated; F17.220 Nicotine dependence, chewing tobacco, uncomplicated
CPT/HCPCS: 71101; 99282

== ENCOUNTER → 2024-01-19 | Outpatient (CLI) | payer MEDICARE, MEDICAID, SELFPAY ==
[2024-01-19 09:14] LABS: Hematocrit 46.9 % (40-54); Hemoglobin 15.5 g/dL (13.0-16.5); Mean Corpuscular Hgb 29.4 pg (27.0-32.0); Mean Platelet Vol. 9.2 fl (6.2-12.0); Platelet Count 260 K/mm3 (150-450); RBC Distribution Width SD 42.5 fl (35.1-43.9); Red Blood Count 5.27 M/mm3 (4.6-6.2); White Blood Count 4.7 K/mm3 (4.4-11.0)
[2024-01-19 12:21] LABS: ALB/GLOB Ratio 1.1 RATIO (0.9-2.4); AST(SGOT) 29 U/L (15-37); Alanine Aminotransfer ALT/SGPT 40 U/L (16-61); Albumin, Serum 3.6 g/dL (3.2-5.0); Alkaline Phosphatase 80 U/L (45-117); Anion Gap 7 (5-15); BUN 7 mg/dL (7-18); BUN/Creat Ratio 9.2 RATIO (10-20); Chloride 108 mmol/L (98-107); Cholesterol 168 mg/dL (200); Creatinine, Serum 0.76 mg/dL (0.70-1.30); EST Glomerular Filtration Rate 126 mL/min (>60); Est Glom Filt Rate - Afr Amer 152 mL/min (>60); Globulin 3.4 g/dL (2.2-4.2); Glucose 106 mg/dL (74-106); High Density Lipoprotein 46 mg/dL; Potassium 4.2 mmol/L (3.5-5.1); Sodium Level 140 mmol/L (136-145); Triglycerides 128 mg/dL; Very Low Density Lipoprotein 26 mg/dL (5-40)
[2024-01-19 14:35] LABS: Carbamazepine (Tegretol) 8.2 ug/mL (4.0-12.0)
[2024-01-19 15:46] LABS: Hemoglobin A1c 5.1 % (3.8-5.6)
== END | disposition home or self-care (01) ==
PROVIDERS: Referring Provider Psychiatry & Neurology Psychiatry; Visit Provider Psychiatry & Neurology Psychiatry
DX: Z79.899 Other long term (current) drug therapy (principal)
CPT/HCPCS: 36415; 80053; 80061; 80156; 83036; 85027

== ENCOUNTER 2024-02-02 14:51 | Emergency (ER) | payer MEDICARE, MEDICAID, SELFPAY ==
[2024-02-02 14:52] VITALS: BP 119/80; PULSE 70; RESP 16; TEMP 36.4; O2SAT 97; BMI 27.8
--- NOTE | 2024-02-02 15:01 | ED.VIS.LOWEX ---
HPI History of Present Illness Chief Complaint: Lower Extremity Injury Informant: patient and EMS Narrative Narrative: Patient states he was walking [place] the railroad tracks and he slipped between the track in the gravel, twisting his left knee, he states something popped out of place and he has been having severe pain ever since. He tried to walk on it after that, he is not sure for what back and or not. He presents by EMS splinted. Denies any other injury except for the left knee. PFSH PFSH Medical History Smoker Bipolar disorder Schizophrenia Home Medications ?Medication ?Instructions ?Recorded ?Last Taken ?Type olanzapine 10 mg tablet 30 mg PO QHS 05/03/18 Unknown History aripiprazole 400 mg intramuscular 500 mg IM QMONTH 04/08/20 Unknown History suspension,extended release carbamazepine 100 mg chewable 100 mg PO BID 09/07/22 Unknown History tablet cephalexin 500 mg capsule 500 mg PO TID 7 days #21 caps 09/07/22 Unknown Rx sulfamethoxazole 800 1 tab PO BID 7 days #14 tabs 09/07/22 Unknown Rx mg-trimethoprim 160 mg tablet (Bactrim DS) oxycodone-acetaminophen 5 mg-325 1 tab PO Q6H PRN PRN Pain 3 days 02/02/24 Unknown Rx mg tablet #12 TABLETS Allergy/AdvReac Type Severity Reaction Status Date / Time haloperidol (From Haldol) Allergy Other Verified 02/02/24 14:52 risperidone Allergy Other Verified 02/02/24 14:52 Surgical History Hx of appendectomy Social History Smoking Status: Current every day smoker tobacco type: cigarettes and smokeless tobacco ROS ROS ED Constitutional Constitutional ED: Denies chills or fever(s) Musculoskeletal Musculoskeletal: Reports extremity pain; Denies neck pain Integumentary Denies Abrasions, rash or wounds Neurologic Neurologic: Denies paresthesias or weakness EXAM Physical Exam Const Vital Signs: 02/02/24 14:52 Temperature 97.5 F L Temperature Source Temporal Pulse Rate 70 Respiratory Rate 16 Blood Pressure 119/80 Blood Pressure Mean 93 Pulse Ox 97 Oxygen Delivery Method Room Air Positive well nourished and well developed General Appearance ED: well developed and NAD Neck full ROM and supple Back/Spine normal ROM and normal to inspection Extremity Extremity Narrative: Limited range of motion of the left knee, there is no deformity. The patella is anterior. There is diffuse anterior tenderness. He has pain without laxity when stressing the MCL, not so much with the LCL. Extensor mechanism is intact, he is able to bend it to about 20 or 30 degrees, ACL and PCL are intact without laxity within the limits of the exam. There might be a mild effusion. Neurovascular intact distally no other areas of bony tenderness. Neuro oriented x3, no focal motor deficits and no sensory deficits noted Sensorium / Orientation: alert Psych mental status grossly normal and thought process normal Skin no wounds Rashes: no rashes MDM MDM MDM Narrative Medical decision making narrative: Obtain three-view x-ray series of the left knee, patient is not able to perform sunrise, on my interpretation shows a tibial plateau fracture. Radiology in agreement. There is no dislocation. Patient is neurovascular intact distally. Replacement a knee immobilizer placed an IV with analgesics, and I discussed with the patient, we do not have orthopedics available today he will need to be transferred for this and may be surgical. He chose [facility] in [place], but they do not have the capacity to accept a transfer and I did not receive a callback from their orthopaedic surgeon. Therefore I discussed with [facility] at [place], who discussed with her trauma specialist, reviewed the images, and determined that it would be appropriate for the patient to go home nonweightbearing in a knee immobilizer and crutches and follow-up in 2 days in the office. Patient is comfortable with that plan. He is going follow-up with Dr. Clara Skinner in 2 days, he is given a prescription for analgesics, they requested that the patient elevate quite a bit which I told him and that we obtain a CT scan prior to discharging him which we did. I reviewed the images and the result which I agree with, in order to characterize the fracture. These images are being transferred to their servers in [place]. Radiography Diagnostic Testing: Clinical Impression(s) from Imaging Studies Knee X-Ray 02/02/24 15:05 IMPRESSION: 1. Acute comminuted impaction fracture of the central and lateral tibial plateau Electronically Signed: Royce Magallon MD at 15:27 EDT Reading Location ID and State: [address] [place] [address] , Service support , Management Discussion w/another healthcare provider: [employer] Discharge Plan Triage Chief Complaint: Lower Extremity Injury ED Provider: Connor Hyman Dx/Rx/DC Orders Clinical Impression: Closed fracture of left tibial plateau, Fall from slip, trip, or stumble Instructions: Using Crutches: [id number], ED Knee Immobilizer, ED Fracture, Knee Prescriptions: New oxycodone-acetaminophen 5-325 mg tablet 1 tab PO Q6H PRN PRN (Reason: Pain) 3 Days Qty: 12 0RF No Action olanzapine 10 MG tablet 30 mg PO QHS aripiprazole 400 MG suspension,extended rel recon 500 mg IM QMONTH carbamazepine [Tegretol] 100 mg Tablet,Chewable 100 mg PO BID cephalexin 500 mg capsule 500 mg PO TID 7 Days Qty: 21 0RF sulfamethoxazole-trimethoprim [Bactrim DS] 800-160 mg tablet 1 tab PO BID 7 Days Qty: 14 0RF Primary Care Provider: Care Physician,No Primary Referrals: Clara Skinner MD [Non-Staff] - 02/04/24 (call office for appt time on ) Care Physician,No Primary [Primary Care Provider] - Print Language: Kiswahili Disposition Disposition: Home, Self Care
--- NOTE | 2024-02-02 15:05 | RAD_ITS ---
STUDY: X-RAY - LEFT KNEE REASON FOR EXAM: Male, 33 years old. injury TECHNIQUE: 3 view(s) of the knee. COMPARISON: None. FINDINGS: An acute comminuted impaction fracture of the central and lateral tibial plateau are present with mild displacement of the fracture fragments in a large joint effusion/hemarthrosis. No additional fractures are seen. Normal visualized distal femur. Normal visualized proximal fibula. Normal proximal tibiofibular articulation. Normal medial femorotibial compartment. Normal lateral femorotibial compartment. Normal patellofemoral articulation. Mild soft tissue swelling is present. RAD/Knee 3 Views IMPRESSION: 1. Acute comminuted impaction fracture of the central and lateral tibial plateau Electronically Signed: Royce Magallon MD at 15:27 EDT ,
[2024-02-02] MEDS: Morphine 4 MG/ML Syringe IV (15:33)
--- NOTE | 2024-02-02 16:18 | NURSING ---
CALLED [facility]. THEY ARE TO HAVE THEIR ORTHO SURGEON RETURN CALL
--- NOTE | 2024-02-02 17:01 | CT_ITS ---
EXAM: CT LEFT LOWER EXTREMITY WITHOUT INTRAVENOUS CONTRAST CLINICAL INDICATION: fracture TECHNIQUE: Helically acquired images were obtained of the left lower extremity without intravenous contrast. 2-D reformats were performed by the technologist. This CT exam was performed using one or more of the following dose reduction techniques: automated exposure control, adjustment of the mA and/or kV according to patient size, and/or use of iterative reconstruction technique. COMPARISON: No relevant prior studies available. FINDINGS: BONES/JOINTS: There is a comminuted tibial plateau fracture which extends across the medial and lateral tibial plateaus as well as involving the tibial spine. There is a lipohemarthrosis present. Preservation of the joint space. No sclerotic or destructive changes. SOFT TISSUES: Unremarkable. No soft tissue swelling or gas. No radiopaque foreign body. CT/Extremity Lower without Contra IMPRESSION: Comminuted tibial plateau fracture extending across the medial and lateral tibial plateaus and involving the tibial spine. Electronically Signed: Edgar Limon MD at 17:48 EDT ,
[2024-02-02 17:30] VITALS: BP 104/78; PULSE 72; RESP 16; TEMP 36.1; O2SAT 94
== END 2024-02-02 17:41 | disposition home or self-care (01) ==
PROVIDERS: Emergency Provider Emergency Medicine; Visit Provider Emergency Medicine
DX: S82.142A Displaced bicondylar fracture of left tibia, initial encounter for closed fracture (principal); F20.9 Schizophrenia, unspecified; F31.9 Bipolar disorder, unspecified; W18.09XA Striking against other object with subsequent fall, initial encounter; Y93.01 Activity, walking, marching and hiking; Y92.85 Railroad track as the place of occurrence of the external cause; F17.210 Nicotine dependence, cigarettes, uncomplicated; F17.220 Nicotine dependence, chewing tobacco, uncomplicated; Z79.899 Other long term (current) drug therapy
CPT/HCPCS: 73562; 73700; 96374; 99285; A4216

== ENCOUNTER 2024-02-03 05:46 | Emergency (ER) | payer MEDICARE, MEDICAID, SELFPAY ==
[2024-02-03 05:47] VITALS: BP 141/96; PULSE 76; RESP 16; TEMP 36.8; O2SAT 94; BMI 27.8
--- NOTE | 2024-02-03 06:36 | EDS_ITS ---
HPI History of Present Illness HPI Narrative: Patient presents with left knee pain that became worse today. Patient states he fell yesterday and was diagnosed with a fracture of his proximal tibia. Patient states that he was placed in a knee immobilizer and was instructed to follow-up in 2 days with orthopedics in [place]. Patient states that the pain became worse today and he does not think he will be able to wait until tomorrow to see his orthopedic surgeon. Patient describes the pain as sharp and aching. Patient denies any new injury or trauma. Patient states he has some tingling into his toes but denies any weakness. Chief Complaint: Lower Extremity Injury Informant: patient Occured/Mechanism Mechanism/Context: Yes fall Onset/Context/Timing Onset: Yesterday Context: Sudden Onset Timing: Continuous Quality of Pain: Sharp and Aching Location: Left knee Worsened by: Nothing Relieved by: Nothing Associated Symptoms Associated Symptoms: Positive for Parasthesia (Tingling in his toes); Negative for Weakness [facility] Medical History Smoker Bipolar disorder Schizophrenia Home Medications ?Medication ?Instructions ?Recorded ?Last Taken ?Type olanzapine 10 mg tablet 30 mg PO QHS 05/03/18 Unknown History aripiprazole 400 mg intramuscular 500 mg IM QMONTH 04/08/20 Unknown History suspension,extended release oxycodone-acetaminophen 5 mg-325 1 tab PO Q6H PRN PRN Pain 3 days 02/02/24 Unknown Rx mg tablet #12 TABLETS Allergy/AdvReac Type Severity Reaction Status Date / Time haloperidol (From Haldol) Allergy Other Verified 02/03/24 05:52 risperidone Allergy Other Verified 02/03/24 05:52 Surgical History Hx of appendectomy Social History (Updated 02/03/24 @ 06:[address] Girma Reese DO) Smoking Status: Current every day smoker tobacco type: cigarettes and smokeless tobacco alcohol intake: current alcohol intake frequency: 3 or more drinks per day details: 2-3 tall boys per day substance use type: marijuana ROS ROS ED Constitutional Constitutional ED: Denies chills or fever(s) Eyes Eyes: Denies blurry vision or change in vision ENT ENT ED: Denies rhinorrhea or sore throat Cardiovascular Cardiovascular: Denies chest pain or palpitations Respiratory/Chest Respiratory/Chest: Denies cough or dyspnea Gastrointestinal Gastrointestinal: Denies nausea or vomiting Genitourinary Genitourinary ED: Denies dysuria or hematuria Musculoskeletal Musculoskeletal: Denies back pain or neck pain Integumentary Denies abscess or rash Neurologic Neurologic: Denies headache(s) or weakness Allergic/Immunologic Allergic/Immunologic ED: Denies mouth swelling or urticaria EXAM Physical Exam Const Vital Signs: 02/03/24 05:47 Temperature 98.2 F Temperature Source Oral Pulse Rate 76 Respiratory Rate 16 Blood Pressure 141/96 H Blood Pressure Mean 111 Pulse Ox 94 Positive well nourished and well developed General Appearance ED: well developed and NAD HEENT Reports moist mucous membranes Neck full ROM Extremity Extremity Narrative: There is tenderness over the left knee. The knee immobilizer is in place. There is no calf tenderness. There is no calf edema. Pedal pulses are equal bilateral. Sensation was intact to light touch in all digits. Strength is 5/5 bilaterally in the lower extremities. Neuro oriented x3, CN's II-XII intact bilaterally, moves all extremities and no sensory deficits noted Sensorium / Orientation: alert Motor Exam: strength 5/5 throughout Psych mental status grossly normal MDM MDM MDM Narrative Medical decision making narrative: Differential diagnosis includes displacement of the tibial plateau fracture and intractable pain. X-rays of the left knee will be obtained to assess for displacement of the fracture. Radiography Diagnostic Testing: X-rays of the left knee were obtained. There are 2 views. On my independent interpretation, there is a tibial plateau fracture of the posterior aspect of the tibia. There is minimal displacement. This is relatively unchanged from yesterday's x-rays. Radiologist also interpreted the x-rays and agrees. Treatment and Re-Evaluation Narrative: Patient was given injection of morphine here. Patient was advised of his findings. Since there is no displacement at this time, there is no indication for emergent admission and repair of the fracture. Patient has a prescription for Percocet at home. Patient was instructed to keep the leg elevated. Patient was instructed to remain nonweightbearing. Patient was instructed to follow-up with his orthopedic surgeon tomorrow as scheduled. Patient understood and was agreeable with the plan. All questions were answered. Discharge Plan Triage Chief Complaint: Lower Extremity Injury ED Provider: Girma Reese Dx/Rx/DC Orders Clinical Impression: Closed fracture of left tibial plateau, Fall from slip, trip, or stumble Instructions: ED Fracture, Knee Prescriptions: No Action olanzapine 10 MG tablet 30 mg PO QHS aripiprazole 400 MG suspension,extended rel recon 500 mg IM QMONTH oxycodone-acetaminophen 5-325 mg tablet 1 tab PO Q6H PRN PRN (Reason: Pain) 3 Days Qty: 12 0RF Primary Care Provider: Care Physician,No Primary Referrals: Clara Skinner MD [Non-Staff] - 1 Day Care Physician,No Primary [Primary Care Provider] - Print Language: Croatian Disposition Disposition: Home, Self Care
--- NOTE | 2024-02-03 06:42 | RAD_ITS ---
INDICATION: INJURY/PAIN EXAMINATION/TECHNIQUE: X-RAY - LEFT XR Knee 1 or 2 Views 2 VIEWS COMPARISON: No relevant prior comparison study available FINDINGS: BONES: Overlying splint. Acute comminuted fracture of proximal tibia extends to the lateral tibial plateau and possibly the medial plateau. There is a small fragment likely arising from the tibial spines. JOINTS: No dislocation. SOFT TISSUES: Unremarkable. Suprapatellar region obscured by overlying splint. RAD/Knee 1 or 2 Views IMPRESSION: Comminuted proximal tibial fracture involving the lateral and probably the medial tibial plateaus, with fragmentation of the tibial spines. Electronically Signed: Zena Baker MD at 7:54 EDT ,
[2024-02-03] MEDS: Morphine 4 MG/ML Syringe IM (06:48)
[2024-02-03 09:47] VITALS: BP 126/78; PULSE 64; RESP 18; O2SAT 98
[2024-02-03 10:00] VITALS: BP 126/76; PULSE 78; RESP 16; TEMP 36.4; O2SAT 99
--- NOTE | 2024-02-03 10:18 | ED.RN ---
pt. was placed in waiting room by Caren TORRES while waiting for ride. Caren stated to patient i'll check back on you in a little bit, pt. stated well I am leaving and proceeds to roll wheelchair past triage desk. This RN stated patient could not leave with wheelchair, pt. responded with well how the fuck do you expect me to get home, fuck this place This RN stated she was going to get security and pt stated get security you stupid bitch.
== END 2024-02-03 10:08 | disposition home or self-care (01) ==
PROVIDERS: Emergency Provider Emergency Medicine; Visit Provider Emergency Medicine
DX: S82.145A Nondisplaced bicondylar fracture of left tibia, initial encounter for closed fracture (principal); F20.9 Schizophrenia, unspecified; F31.9 Bipolar disorder, unspecified; F17.210 Nicotine dependence, cigarettes, uncomplicated; F17.290 Nicotine dependence, other tobacco product, uncomplicated; W01.0XXA Fall on same level from slipping, tripping and stumbling without subsequent striking against object, initial encounter; Z88.8 Allergy status to other drugs, medicaments and biological substances; Z79.899 Other long term (current) drug therapy
CPT/HCPCS: 73560; 96372; 99282